=== PATIENT | male | born 1995 | race Hispanic/Latino ===

== ENCOUNTER 2023-02-22 15:15 | Emergency (ER) | payer OTHER, SELFPAY ==
[2023-02-22 15:16] VITALS: BP 135/102; PULSE 102; RESP 16; TEMP 36.1; O2SAT 98; BMI 18.0
--- NOTE | 2023-02-22 15:30 | EKG12_ITS ---
Test Reason : SOB Blood Pressure : / mmHG Vent. Rate : 094 BPM Atrial Rate : 094 BPM P-R Int : 128 ms QRS Dur : 090 ms QT Int : 332 ms P-R-T Axes : 069 048 038 degrees QTc Int : 415 ms Sinus rhythm with occasional Premature ventricular complexes Otherwise normal ECG Confirmed by SEBASTIEN ENGLISH, CLIFF ([id number]), online content editor LESLY MANZANARES ([id number]) on 02/23/2023 10:58:31 AM Referred By: Confirmed By:CLIFF CROWE MD
--- NOTE | 2023-02-22 15:33 | ED.RN ---
NO OLD EKG
--- NOTE | 2023-02-22 15:36 | ED.VIS.DYS ---
HPI History of Present Illness Chief Complaint: Shortness of Breath Informant: patient Onset/Context/Timing Onset: Today Context: sudden Timing: Intermittent Current Severity: Mild Maximum Severity: Mild Associated Symptoms Negative for cough or rhinorrhea Chest Pain: Positive for None Narrative Narrative: 27-year-old male history of ADHD no other significant medical problems. Denies any lung or heart disease. States that today at work he drank 2 different energy drinks and felt lightheaded and short of breath. Denied any chest pain. No recent fever or cough. No leg pain or swelling. No hemoptysis. No fever. Currently he is feeling better. PE Risk Factors: Negative for Cancer, OCP + Smoking + > 35, Prior DVT or PE, Recent immobilization or Recent surgery Prior similar symptoms: No Recent Illness/Hospitalization: No PFSH PFSH Allergy/AdvReac Type Severity Reaction Status Date / Time No Known Allergies Allergy Verified 02/22/23 15:15 Social History Smoking Status: Never smoker ROS ROS ED ROS Narrative Denies recent illness. Review of Systems ROS Unobtainable: Denies due to encephalopathy Constitutional Constitutional ED: Denies chills or fever(s) Eyes Eyes: Denies blurry vision ENT ENT ED: Denies ear pain Cardiovascular Cardiovascular: Denies chest pain, orthopnea, palpitations, paroxysmal nocturnal dyspnea or racing heartbeat Respiratory/Chest Respiratory/Chest: Denies cough, dyspnea, dyspnea on exertion, orthopnea, paroxysmal nocturnal dyspnea or sputum Gastrointestinal Gastrointestinal: Denies abdominal pain Genitourinary Genitourinary ED: Denies dysuria or hematuria Musculoskeletal Musculoskeletal: Denies arthralgias Integumentary Denies abscess Psychiatric Psychiatric: Denies anxiety Endocrine Endocrinology: Denies cold intolerance Hematologic/Lymphatic Hematologic/Lymphatic: Denies easy bleeding or easy bruising Allergic/Immunologic Allergic/Immunologic ED: Denies mouth swelling, tongue swelling or urticaria EXAM Physical Exam Narrative Exam Narrative: Well-appearing 26-year-old male. Vital signs are stable afebrile. Pulse ox is 98% on room air no signs hypoxia. H EENT exam unremarkable. Neck nontender no lymphadenopathy. Lungs clear to auscultation bilaterally. No rales, rhonchi or wheezing. Equal symmetrical. Heart tachycardic rate about 102 no murmur. Chest wall and ribs nontender. Abdomen soft nontender. Moving all 4 extremities. Calves are nontender without edema or cords. Equal symmetrical radial pulses. Neurologically is awake alert with no focal motor deficits. Const Vital Signs: 02/22/23 15:16 02/22/23 15:35 Temperature 97 F L Temperature Source Temporal Pulse Rate 102 H Respiratory Rate 16 Respiratory Effort Normal Non-Labored Respiratory Depth Normal Respiratory Pattern Normal Blood Pressure 135/102 H Blood Pressure Mean 113 Pulse Ox 98 Oxygen Delivery Method Room Air Room Air Positive well nourished and well developed; Negative for obese, cachectic, contractures or unkempt General Appearance ED: well developed and NAD; Negative for unkempt, cachectic, contractures or pallor Nutritional Appearance: Negative for cachectic or obese HEENT Reports moist mucous membranes; Denies dry mucous membranes atraumatic; Negative for trauma or tenderness Mouth ED: No dry mucous membranes Mouth: No dry mucous membranes Eyes PERRL and EOMs intact bilaterally General Eye ED: Negative for pale conjunctiva or scleral icterus Neck no lymphadenopathy, supple, no meningeal signs and no JVD General: Negative for tenderness Lymph Lymphatic: Negative for other Chest Wall Chest: Negative for other Resp normal respiratory effort and clear to auscultation bilaterally Effort and Inspection: Negative for pain with movement Auscultation: Negative for rales, rhonchi or wheezes Cardio regular rhythm, S1 normal heart sound, S2 normal heart sound and no murmurs; Negative for regular rate Rate: tachycardic; Negative for bradycardia GI non-tender, non-distended and no masses Inspection: Negative for other Auscultation: normoactive bowel sounds Palpation: soft; Negative for tender or guarding Back/Spine no CVA tenderness and normal to inspection General Back: Negative for CVA tenderness Extremity normal to inspection General Extremety ED: Negative for edema or tenderness General Extremity: Negative for edema Neuro oriented x3 and CN's II-XII intact bilaterally Sensorium / Orientation: alert, oriented to person, oriented to place and oriented to time; Negative for orientation impaired, confused, lethargic or stuporous Speech: speech normal Motor Exam: strength 5/5 throughout Psych mental status grossly normal Appearance: Negative for unkempt Attitude: No agitated and No other Mood & Affect: Negative for depressed, anxious or tearful Thought Process: normal thought process Skin no wounds and skin turgor normal General Skin Exam: Negative for jaundice or pallor Lesions: no lesions Rashes: no rashes Trauma: Negative for abrasion, laceration or puncture MDM MDM MDM Narrative Medical decision making narrative: 27-year-old male had transient dyspnea at work after ingesting 2 energy drinks. He denies any chest pain. He is completely normal exam with a pulse ox of 98%. I will obtain a EKG to evaluate his cardiac rhythm. Otherwise I will think he needs any labs or imaging. He has had no recent URI symptoms. Repeat exam patient is doing well at 3:54 PM. We went over his EKG results. I think his symptoms are secondary to energy drinks. He will be discharged home. History & Record Review Discussion w/independent historian: Patient Additional record(s) reviewed:: No prior records Rhythm Strip Rhythm Strip: Sinus Rhythm Rate: 94 Ectopy: PVC(s) EKG Initial EKG: Attestation: I personally reviewed and interpreted this EKG as follows: Interpretation: Sinus Rhythm and No Acute Injury Pattern Comments: Normal sinus rhythm rate of 94 no acute signs of HI or ischemia. No S1Q3T3. Limited PVCs. Prior EKG tracings: not available for review Prior: No Prior Discharge Plan Triage Chief Complaint: Shortness of Breath ED Provider: Cameron Winslow Dx/Rx/DC Orders Clinical Impression: Acute dyspnea Instructions: ED Dyspnea Primary Care Provider: Dax Huang Referrals: Dax Huang MD [Primary Care Provider] - 3-5 Days if not improving Activity Restrictions/Additional Instructions: Your exam and EKG are normal. This is most likely a reaction to the energy drink. I would be very careful drinking those in the future. Often they are loaded with caffeine and/or sugar that can cause people to have accelerated heart rate and other symptoms. Follow-up with your doctor if not improving. Return if feeling worse. Disposition Disposition: Home, Self Care
== END 2023-02-22 16:03 | disposition home or self-care (01) ==
PROVIDERS: Emergency Provider Emergency Medicine; PCP Pediatrics; Visit Provider Emergency Medicine
DX: R06.00 Dyspnea, unspecified (principal)
CPT/HCPCS: 93005; 99282

== ENCOUNTER 2024-04-28 18:49 | Emergency (ER) | payer OTHER, SELFPAY ==
[2024-04-28 18:49] VITALS: BP 143/96; PULSE 82; RESP 16; TEMP 36.9; O2SAT 100; BMI 18.5
--- NOTE | 2024-04-28 18:55 | RAD_ITS ---
PROCEDURE: HAND MIN 3 VIEWS REASON FOR EXAM: 29-year-old male, crushed left pinky at work. TECHNIQUE: 3 views of the left hand COMPARISON: None FINDINGS: No visible fracture. No suspicious bone lesion. Normal alignment. Soft tissues are unremarkable. RAD/Hand Min 3 Views IMPRESSION: NO ACUTE FRACTURE OR DISLOCATION. If acute hand or wrist trauma is suspected an d initial radiographs are negative or equivocal, repeat radiographs in - is recommended if clinically indicated. Reading Location: [id number]
[2024-04-28 22:49] VITALS: PULSE 64; RESP 16; O2SAT 98
--- NOTE | 2024-04-29 00:50 | EDS_ITS ---
HPI History of Present Illness Chief Complaint: Upper Extremity Injury Informant: patient Narrative Narrative: Patient is a [id number] 29-year-old male. He states he was at work this evening when he was emptying parts out of a plastic bin into a metal bin and his finger became crushed between the 2. He states he injured his left pinky finger. He reports swelling pain and difficulty moving the finger. He states that he has concern for fracture and therefore was sent in for evaluation [facility] Medical History (Updated 04/29/24 @ 03:[address] Сергей Marion, DO) Back pain Osteoarthritis Medical History no medical history Allergy/AdvReac Type Severity Reaction Status Date / Time No Known Allergies Allergy Verified 04/28/24 18:51 Family History no significant family his Surgical History (Updated 03/10/23 @ 06:29 by Nicki Thorpe) No pertinent past surgical history Surgical History no surgical history Social History (Updated 03/10/23 @ 06:29 by Nicki Thorpe) Smoking Status: Never smoker alcohol intake: never substance use type: does not use ROS ROS ED Constitutional Constitutional ED: Denies chills or fever(s) ENT ENT ED: Denies sore throat Cardiovascular Cardiovascular: Denies chest pain Respiratory/Chest Respiratory/Chest: Denies cough or dyspnea Gastrointestinal Gastrointestinal: Denies abdominal pain, diarrhea, nausea or vomiting Genitourinary Genitourinary ED: Denies dysuria Musculoskeletal Musculoskeletal: Reports other Details: Positive left hand/finger pain Integumentary Reports Abrasions Neurologic Neurologic: Denies headache(s), paresthesias or weakness Hematologic/Lymphatic Hematologic/Lymphatic: Denies easy bleeding or easy bruising EXAM Physical Exam Const Vital Signs: 04/28/24 18:49 04/28/24 22:49 Temperature 98.4 F Temperature Source Oral Pulse Rate 82 64 Respiratory Rate 16 16 Blood Pressure 143/96 H Blood Pressure Mean 111 Pulse Ox 100 98 Oxygen Delivery Method Room Air Room Air Positive well nourished and well developed General Appearance ED: well developed HEENT HEENT Narrative: Normocephalic atraumatic Eyes PERRL and EOMs intact bilaterally Neck full ROM and supple Resp normal respiratory effort and clear to auscultation bilaterally Cardio regular rate and regular rhythm Extremity Extremity Narrative: Left upper extremity is neurovascularly intact; AIN/PIN are intact and normal. Patient has soft tissue swelling with ecchymosis to the distal aspect of his left fifth finger with a small hematoma to the volar pad. There is also a small approximate 10% subungual hematoma noted. Compartments however are still soft and compressible going against compartment syndrome. No signs of ligamentous or tendon damage Neuro oriented x3, CN's II-XII intact bilaterally, moves all extremities and no sensory deficits noted Sensorium / Orientation: alert Psych mental status grossly normal Skin Skin Narrative: Soft tissue changes to the left finger as documented above MDM MDM MDM Narrative Medical decision making narrative: Patient arrived to the ER hypertensive otherwise with stable vital. He reported a direct crush injury to the left finger. Differential diagnosis is for contusion versus fracture versus ligamentous or tendon laceration. By exam he has full flexion and extension going against a tendon injury and there is no obvious ligamentous laxity with stressing of the stabilizing joints. The compartments are soft and compressible going against compartment syndrome and with concern for fracture and x-ray was obtained which revealed no acute finding. Therefore this time the patient does not require trephination as the subungual hematoma is less than 50% and without signs of open fracture or ligamentous/tendon injury there is no need for orthopedic consultation. Patient is otherwise safe for discharge with symptomatic care History & Record Review Discussion w/independent historian: Patient Radiography Diagnostic Testing: Clinical Impression(s) from Imaging Studies Hand X-Ray 04/28/24 18:55 IMPRESSION: NO ACUTE FRACTURE OR DISLOCATION. If acute hand or wrist trauma is suspected and initial radiographs are negative or equivocal, repeat radiographs in 10-14 is recommended if clinically indicated. Reading Location: [facility] X-ray of the left hand as interpreted by the emergency medicine physician reveals no acute fracture or dislocation or retained foreign body Discharge Plan Triage Chief Complaint: Upper Extremity Injury ED Provider: Сергей Marion Dx/Rx/DC Orders Clinical Impression: Finger contusion, Subungual hematoma of fingernail, Hypertension Instructions: ED Crush Injury, Hand, ED Subungual Hematoma Primary Care Provider: Dax Huang Referrals: Dax Huang MD [Primary Care Provider] - Activity Restrictions/Additional Instructions: Please follow-up with Workmen's Compensation for repeat evaluation as directed by your HR department. Continue with Tylenol and/or Motrin for pain control and ice the area to reduce pain and speed healing. Return to the ER should you have any further concerns Print Language: Jamaican Disposition Disposition: Home, Self Care Discharge Date/Time: 04/29/24 01:10
== END 2024-04-29 01:10 | disposition home or self-care (01) ==
LOC: ED 04-29 00:59
PROVIDERS: Emergency Provider Emergency Medicine; PCP Pediatrics; Visit Provider Emergency Medicine
DX: S60.152A Contusion of left little finger with damage to nail, initial encounter (principal); W23.0XXA Caught, crushed, jammed, or pinched between moving objects, initial encounter; Y99.0 Civilian activity done for income or pay; I10 Essential (primary) hypertension
CPT/HCPCS: 73130; 99282